=== PATIENT | male | born 1955 | race Caucasian/White ===

== ENCOUNTER → 2018-12-23 | Outpatient (CLI) | payer BC ==
[~2018-12-23] MED LIST: ALPH300C PO; ARIP2TAB3 PO; ASPI325T8 PO; ATOR10TA60 PO; CETI10TA16 PO; CHOL500016 PO; CYAN10005 PO; DESV100T PO; DOCU-109 PO; ESOM40CA PO; GABA300C18 PO; HYDR-2145 PO; HYDR-3164 PO; INSU100I13 SQ; LACT1CAP6 PO; LOSA100T14 PO; METH-38 PO; OMEG1CAP38 PO; PIOG1TAB6 PO; SAW450CA7 PO; UBID1CAP41 PO; ZINC50TA33 PO
[2018-12-23 14:22] LABS: BASO # 0.1 x10^3/uL (0.0-0.2); BASO % 1 % (0-3); EOS # 0.1 x10^3/uL (0.0-0.7); EOS % 2 % (0-3); HEMOGLOBIN 12.3 g/dL (13.0-17.5); LYMPH # 2.1 x10^3/uL (1.0-4.8); LYMPH % 30 % (24-48); MEAN CORPUSCULAR HEMOGLOBIN 33 pg (25-35); MEAN CORPUSCULAR HGB CONC 34 g/dL (31-37); MEAN CORPUSCULAR VOLUME 96 fL (79-100); MONO # 0.6 x10^3/uL (0.0-1.1); MONO % 8 % (0-9); NEUT # 4.1 x10^3uL (1.8-7.7); NEUT % 59 % (31-73); PLATELET COUNT 316 x10^3/uL (140-400); RED BLOOD COUNT 3.76 x10^6/uL (4.30-5.70); RED CELL DISTRIBUTION WIDTH 16.3 % (11.5-14.5); WHITE BLOOD COUNT 6.9 x10^3/uL (4.0-11.0)
--- NOTE | 2018-12-23 14:56 | EKG ---
[facility] [address] [place] [address] Test Date: 2018-12-23 Test Time: 14:24:45 Pat Name: ALLEN WANG Department: Room: Gender: M Lead Manufacturing Engineering Tech: LEILANI : 1955 Requested By: DALIA DEL REAL Order Number: [id number] Reading MD: Trevon Lucas MD Measurements Intervals [place] Rate: 80 P: 12 WV: 184 QRS: 15 QRSD: 102 T: 27 QT: 356 QTc: 414 Interpretive Statements SINUS RHYTHM CONSISTENT WITH INFERIOR INFARCT PROBABLY OLD Electronically Signed On 12-28-2018 13:18:49 CDT by Trevon Lucas MD
[2018-12-23 15:00] LABS: ALBUMIN 3.5 g/dL (3.4-5.0); ALBUMIN/GLOBULIN RATIO 0.9 (1.0-1.7); CALCIUM 9.2 mg/dL (8.5-10.1); CREATININE 1.6 mg/dL (0.7-1.3); GFR 43.9; POTASSIUM 4.2 mmol/L (3.5-5.1); TOTAL BILIRUBIN 0.3 mg/dL (0.2-1.0); TOTAL PROTEIN 7.3 g/dL (6.4-8.2)
== END | disposition home or self-care (01) ==
LOC: SURGPAT 13:23
PROVIDERS: ATTEND Neurological Surgery
DX: Z01.818 Encounter for other preprocedural examination (principal); M51.16 Intervertebral disc disorders with radiculopathy, lumbar region
CPT/HCPCS: 36415; 80053; 85025; 87641; 93005

== ENCOUNTER 2019-01-01 06:34 | Day surgery (SDC) | payer BC ==
--- NOTE | 2018-12-31 14:22 | PREOP HP ---
DATE OF SERVICE: 01/01/2019 HISTORY OF PRESENT ILLNESS: The patient is a pleasant 63-year-old who is having difficulty with low back pain along with pain which radiates into his left anterior lateral thigh and leg. He does not notice problems of weakness or numbness. The problem has been present for a few years, but has been DALIA DEL REAL MD DR: VIVEK/crystal JOB#: [id number] / [id number]
--- NOTE | 2018-12-31 15:22 | HP ---
ADMIT DATE: 01/01/2019 [place] Mayes dictating for Dr. Jerardo Del Real. HISTORY OF PRESENT ILLNESS: The patient is a pleasant 63-year-old who is having difficulty with low back pain along with pain, which radiates to his left anterior lateral thigh and leg. He does not notice problems with weakness or numbness. The problem has been present for a few years, but has been slowly worsening. He rates his pain as a 6/10. Standing and walking increases his pain. Sitting gives him some relief. Because of the persistent pain, he underwent a spinal cord stimulator in 2018, which gave him minimal relief. He has had physical therapy this last year. He had epidural steroid injections without benefit in 2017. There is no problem on the right side. PAST MEDICAL HISTORY: Headaches or migraines, head injury, psychiatric care, shingles, diabetes. PAST SURGICAL HISTORY: Spinal cord stimulator in 2018. FAMILY HISTORY: Diabetes and migraine headaches. SOCIAL HISTORY: Employed as an associate agent insurance sales, Auctioneer. . Rarely exercises. Denies substance abuse or tobacco use. Drinks alcohol 1-2 times per month. ALLERGIES: No known drug allergies. CURRENT MEDICATIONS: Lantus, hydrochlorothiazide, desvenlafaxine, esomeprazole, Victoza, aripiprazole, atorvastatin, pioglitazone, losartan, gabapentin, B12, alpha lipoic acid, cetirizine, aspirin, vitamin D3, omega 3, saw palmetto, probiotic, magnesium, CoQ10, zinc and Tylenol. REVIEW OF SYSTEMS: A 12-point review of systems was obtained and is noncontributory except that mentioned above. PHYSICAL EXAMINATION: NEUROSURGERY EXAMINATION: GENERAL APPEARANCE: Alert, pleasant, in no acute distress. HEAD: Normocephalic and atraumatic. SKIN: Warm and dry. MUSCULOSKELETAL: Lumbar paraspinal muscle bulk is normal, restricted range of motion of lumbar spine, [id number] tenderness of lower lumbar spine with palpation, normal range of motion of the lower extremities bilaterally. EXTREMITIES: No clubbing, cyanosis or edema. NEUROLOGIC: Alert and oriented x 3. Normal recent and remote memory. Strength 5/5 in bilateral lower extremities, sensory was intact to light touch in bilateral lower extremities except for diffuse decrease involving his left foot. Reflexes are trace and symmetric in lower extremities bilaterally, positive straight leg raise on the left with back and left hip and leg pain relieved by Lasegue's maneuver, negative straight leg raising on the right, normal gait. IMAGING: Reviewed. I reviewed a lumbar MRI scan. On that study, the principal abnormality is at L2-L3 on the left where there is a focal left-sided disk herniation, which appears to be compressing the left L3 nerve root. There is also narrowing present at the left neural foramen at this level, but I did not see a definite L2 root compression. ASSESSMENT: 1. Intervertebral disk disorder with radiculopathy, lumbar region. 2. Low back pain. PLAN: I believe the problems at L2-L3 on the left are contributing significantly to his pain. I explained to him that I could operate and decompress him at this level performing a lumbar microdiskectomy to see if this would help her. The problem has been present for years. I explained that it was possible to perform the surgery and he would be no better. We spoke about the technique, the risks as well as the expected postoperative course. He understands. He would like to go ahead. We will make the arrangements. JERARDO DEL REAL MD DR: VIVEK/crystal JOB#: [id number] / [id number]
[~2019-01-01] VITALS: Ht 177.8 cm; Wt 135.6 kg
[~2019-01-01 06:34] MED LIST changes: +BACITRACIN 50,000 UNIT in IV NORMAL SALINE 1000ML BAG 1,000 ML IRR ONE; +BUPIVAC MPF-EPI 0.5%-1:200000 30 ML VIAL. ONE; +DEXAMETHASONE SOD PHOS 20 MG/5 ML VIAL. ONE; -DOCU-109 PO; +GELATIN SPONGE SIZE 12-7MM SPONGE. ONE; -HYDR-3164 PO; +KETOROLAC 60 MG/2 ML INJ FOR OR. ONE; +LIDOCAINE 2% PF 5 ML VIAL. ONE; -METH-38 PO; +ONDANSETRON PF 4 MG/2 ML VIAL. ONE; +PHENYLEPHRINE in 0.9% NACL PF 1 MG/10 ML SYRINGE. IV ONE; +PROPOFOL 20 ML IV ONE; +PROPOFOL 50 ML IV ONE; +REMIFENTANIL 2 MG VIAL. IV ONE; +ROCURONIUM 50 MG/5 ML VIAL. ONE; +THROMBIN TOPICAL 20,000 UNIT SPRAY.SYRN KIT TP ONE; +ceFAZolin SODIUM 3 GM in IV DEXTROSE 5% 100ML 100 ML IV PRN; +ePHEDrine PF IN SALINE 50 MG/10 ML SYRINGE. IV ONE
[2019-01-01] MEDS ORDERED: LIDOCAINE 1% PF 2 ML VIAL. ID PRN (07:00)
[2019-01-01] MEDS ORDERED: IV RINGERS,LACTATED 1000ML 1,000 ML IV SCH (07:00)
[2019-01-01] MEDS ORDERED: fentaNYL PF VIAL 100 MCG/2 ML VIAL IV PRN (07:00)
[2019-01-01] MEDS ORDERED: PROCHLORPERAZINE 10 MG/2 ML VIAL. IV PRN (07:00)
[2019-01-01] MEDS ORDERED: ONDANSETRON PF 4 MG/2 ML VIAL. IV PRN (07:00)
[2019-01-01] MEDS ORDERED: MORPHINE SULFATE 2 MG/ML VIAL. IV PRN (07:00)
[2019-01-01] MEDS ORDERED: HYDROmorphone 2 MG/ML VIAL IV PRN (07:00)
[2019-01-01] MEDS ORDERED: MINERAL OIL/PETROLATUM,WHITE OPHTH OINT 3.5GM TUBE. ONE (08:11)
[2019-01-01] MEDS ORDERED: GLYCOPYRROLATE 1 MG/5 ML VIAL. ONE (09:10)
[2019-01-01] MEDS ORDERED: PROPOFOL 50 ML IV ONE (10:00)
[2019-01-01] MEDS ORDERED: PHENYLEPHRINE 10 MG/ML VIAL. ONE (10:23)
[2019-01-01] MEDS ORDERED: PHENYLEPHRINE in 0.9% NACL PF 1 MG/10 ML SYRINGE. IV ONE (10:23)
[2019-01-01] MEDS ORDERED: ePHEDrine PF IN SALINE 50 MG/10 ML SYRINGE. IV ONE (10:23)
[2019-01-01] MEDS ORDERED: NEOSTIGMINE METHYLSULFATE 5 MG/5 ML SYRINGE. ONE (10:41)
[2019-01-01] MEDS ORDERED: fentaNYL PF VIAL 100 MCG/2 ML VIAL ONE (10:44)
[2019-01-01] MEDS ORDERED: DOCU-109 PO (11:00)
[2019-01-01] MEDS ORDERED: HYDR-3164 PO (11:00)
[2019-01-01] MEDS ORDERED: METH-38 PO (11:00)
--- NOTE | 2019-01-01 11:01 | DISCH ---
DISCHARGE INSTRUCTIONS Condition on Discharge Condition on Discharge: Stable Activity After Discharge Activity Instructions for Disc: Activity as tolerated, Avoid exertion Other activity instructions: no driving for a week Bathing Instructions: Shower-keep dressing dry Lifting Instructions after Dis: No heavy lifting, No pulling or pushing, Do not lift >10 pounds Wound Incision Care Wound/Incision Care: Ice to area for comfort Other wound/incision instructi: may remove dressing in 48 hours if dry then may shower, no soaking Contacting the after DC Call your doctor for: Concerns you may have Follow-Up Follow up with: Dr. Del Real's nurse in 2 weeks [phone] DALIA DEL REAL MD Jan 01, 2019 11:01
[2019-01-01] MEDS: fentaNYL PF VIAL 100 MCG/2 ML VIAL IV PRN ×2 (11:25→11:51)
[2019-01-01] MEDS ORDERED: HYDROcodone/APAP 5/325MG 1 TAB TABLET ONE (11:45)
[2019-01-01] MEDS ORDERED: HYDROcodone/APAP 5/325MG 1 TAB TABLET PO ONE (11:45)
[2019-01-01 12:11] VITALS: BP 121/71
--- NOTE | 2019-01-01 12:11 | OP ---
DATE OF SURGERY: 01/01/2019 PREOPERATIVE DIAGNOSIS: Herniated lumbar disc, L2-L3 left, with left lumbar radiculopathy. POSTOPERATIVE DIAGNOSIS: Herniated lumbar disc, L2-L3 left, with left lumbar radiculopathy. OPERATION PERFORMED: Hemilaminotomy and microdiskectomy L2-L3, left. The operation was done with EMG monitoring, SSEP monitoring, fluoroscopy, microscopic dissection. SURGEON: Jerardo Del Real M.D. FRUIT ROOM HAND: Carolynn Pham, assisted with the exposure of the microdiscectomy as well as the closure. OPERATIVE INDICATIONS: The patient is a very pleasant 63-year-old man who has problems with low back pain along with left hip and anterior thigh and leg pain. The problem has been present for years, and in fact, he had epidural steroid injections in 2017 and a spinal cord stimulator placed in 2018. The disc is clearly seen on imaging studies at L2-L3 on the left and I recommended lumbar microsurgery. I spoke with him about the surgery, the risks, technique and expected operative course and he wished to go ahead. DESCRIPTION OF PROCEDURE: Following general endotracheal anesthesia, the patient was positioned prone on the Wale table. Lumbar region prepped and draped in standard fashion. NITO hose and AV impulse boots were applied for DVT prophylaxis. The microscope was draped. Fluoroscopy was draped and brought into field. Monitoring was established. Ancef 3 gram was given less than 1 hour prior to the initiation of surgery. Using fluoroscopic guidance, a midline posterior incision was made over the L2-L3 interspace, dissected down through skin and subcutaneous tissue, reflected the paraspinal muscles and placed a [place] micro disc retractor. I brought in the microscope and confirmed my position fluoroscopically. Using the high speed air drill, I burred a generous hemilaminotomy and then trimmed away thickened ligamentum flavum, exposing the dura and the exiting L3. I did perform partial foraminotomy. I retracted the root medially. There was a moderately large subligamentous disc herniation and I incised the ligament with a #11 blade and then teased back and removed multiple subligamentous disc fragments. I then went slightly deeper and entered into the disc space and removed disc from this location as well. The disc was largely collapsed at this location. I irrigated copiously with antibiotic solution. I explored carefully. There were no retained fragments. The root was very free. I did work and obtained excellent hemostasis with bipolar cautery as well as intermittent use of bone wax where necessary. I then removed the retractor, obtained hemostasis in the muscle, irrigated copiously again and then I closed the wound in layers with absorbable suture and skin was closed with 4-0 subcuticular stitch. The operation went very well and I was quite pleased with the surgery. JERARDO DEL REAL MD DR: VIVEK/crystal JOB#: [id number] / [id number] TOY
--- NOTE | 2019-01-04 15:06 | PATHOLOGY ---
[facility] Accession Number: [id number] . 01 Material submitted: . vertebral column - LUMBAR DISC AND DECOMPRESSION . 01 Clinical history: . Herniated disc with radiculopathy . 02 Diagnosis: Segments of fibrocartilaginous, adipose and skeletal muscle tissue and bone, lumbar disc and decompression: - Degenerative changes of fibrocartilaginous tissue. (JP:instructor psychiatric aide; 01/04/2019) MBR/01/04/2019 . 02 Comment: There is no evidence of an acute inflammatory process or malignancy. (JPM:instructor psychiatric aide; 01/04/2019) . 02 Electronically signed: . Donavan Weir MD, Pathologist NPI- [id number] . 01 Gross description: . The specimen is received in formalin, labeled "Chayito Dixon, lumbar disc and decompression", are multiple irregular fragments of turpin and yellow and gritty tissue possibly admixed with bone spicule measuring 3.4 x 3.0 x 1.5 cm in aggregate. Dining Manager tissue is submitted in A1 after decalcification. ([facility]; 01/01/2019) SHS/SHS . 02 Pathologist provided ICD-10: M51.36 . 02 CPT . 244253, [id number] Specimen Comment: A courtesy copy of this report has been sent to Specimen Comment: [phone], . Specimen Comment: Report sent to / DR ROSS Performed at: 01 [facility] [address], [place] [id number] MD Romie Wei MD Phone: [phone] Performed at: 02 [facility] [id number] MD Donavan Weir MD Phone: [phone]
== END 2019-01-01 13:10 | disposition home or self-care (01) ==
LOC: SURG 06:34
PROVIDERS: ATTEND Neurological Surgery
DX: M51.16 Intervertebral disc disorders with radiculopathy, lumbar region (principal); G43.909 Migraine, unspecified, not intractable, without status migrainosus; E11.9 Type 2 diabetes mellitus without complications; Z79.82 Long term (current) use of aspirin; Z98.890 Other specified postprocedural states; Z72.89 Other problems related to lifestyle; Z79.4 Long term (current) use of insulin
CPT/HCPCS: 63030; 76000; 82962; 88304; 88311; 97161; A7015; J0171; J1100; J1885; J2001; J2370; J2405; J2704; J2710; J3010; J3490; J7030

== ENCOUNTER → 2019-03-31 | Outpatient (CLI) | payer BC ==
[~2019-03-31] MED LIST changes: -BACITRACIN 50,000 UNIT in IV NORMAL SALINE 1000ML BAG 1,000 ML IRR ONE; -BUPIVAC MPF-EPI 0.5%-1:200000 30 ML VIAL. ONE; +CYAN-25 PO; -CYAN10005 PO; -DEXAMETHASONE SOD PHOS 20 MG/5 ML VIAL. ONE; +DOCU-109 PO; -GELATIN SPONGE SIZE 12-7MM SPONGE. ONE; +HYDR-3164 PO; -KETOROLAC 60 MG/2 ML INJ FOR OR. ONE; -LIDOCAINE 2% PF 5 ML VIAL. ONE; +METH-38 PO; -ONDANSETRON PF 4 MG/2 ML VIAL. ONE; -PHENYLEPHRINE in 0.9% NACL PF 1 MG/10 ML SYRINGE. IV ONE; -PIOG1TAB6 PO; +PIOG1TAB8 PO; -PROPOFOL 20 ML IV ONE; -PROPOFOL 50 ML IV ONE; -REMIFENTANIL 2 MG VIAL. IV ONE; -ROCURONIUM 50 MG/5 ML VIAL. ONE; -THROMBIN TOPICAL 20,000 UNIT SPRAY.SYRN KIT TP ONE; -ceFAZolin SODIUM 3 GM in IV DEXTROSE 5% 100ML 100 ML IV PRN; -ePHEDrine PF IN SALINE 50 MG/10 ML SYRINGE. IV ONE
--- NOTE | 2019-03-31 16:35 | RAD ---
Lateral extension and flexion views of the lumbar spine Clinical indications: Spondylolisthesis. FINDINGS: Grade 1-2 anterolisthesis of L5-S1 is seen which measures 12 mm in flexion and 11 mm in extension. Spondylolysis of L5 may be present. No compression fracture or discitis or lytic process is evident. Degenerative endplate spurring without significant disc space narrowing is seen throughout the lumbar spine. IMPRESSION: Grade 1-2 anterolisthesis of L5-S1 which may be secondary to spondylolysis of L5. Electronically signed by: Vance Manrique MD (03/31/2019 4:32 PM) [place] [id number]
== END | disposition home or self-care (01) ==
LOC: RAD 10:05
PROVIDERS: ATTEND Neurological Surgery
DX: M43.17 Spondylolisthesis, lumbosacral region (principal)
CPT/HCPCS: 72120